=== PATIENT | female | born 1970 | race Caucasian/White ===

== ENCOUNTER 2018-11-04 20:46 | Emergency (ER) | payer OTHER ==
[2018-11-04 21:03] VITALS: BP 139/80
--- NOTE | 2018-11-04 21:28 | EDPHY ---
General Time Seen by Provider: 11/04/18 21:17 Narrative: CHIEF COMPLAINT: Accidentally Cut my wrist HISTORY OF PRESENT ILLNESS: Patient presents by private vehicle with complaints of accidental left wrist laceration. She states that she was opening a can of vegetables approximately 1 hr ago when the lid cut her left wrist. She has mild pain in the area. No pulsatile bleeding described. She has no numbness or tingling distally. No difficulty moving the wrist or fingers. Tetanus is felt to be up-to-date. No other associated complaints or modifying factors. TIME OF INJURY: Approximately 1 hr ago TETANUS STATUS: [place] to be up-to-date MEDICAL/SURGICAL/SOCIAL HISTORY: Uncomplicated. Lives independently with her spouse. 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 Brisk cap refill Neurological: A&O, sensory symmetric, strength symmetric Skin: Warm and dry, no rash. 4 cm laceration over the distal left wrist, volar. No pulsatile bleeding. No deep tissue structure injury. No foreign body. Neuro intact distal to the injury. Extremities: Tenderness of the left wrist laceration. Full range of motion of the upper extremities without deficit. Psych: Denies suicidal ideation, depression or homicidal ideation. DIFFERENTIAL DIAGNOSES: Including but not limited to laceration, laceration complication, laceration foreign body, laceration with deep tissue injury MDM: 9:15 p.m. Accidental left wrist laceration. This is a superficial wound with no deep tissue structure injury. She is neuro intact distally. She denies suicidal ideation. She has no injury elsewhere. Tetanus is felt to be up-to-date. I have anesthetize the wound. Proceed with irrigation closure. No indication for x-ray. 10:00 p.m. Superficial laceration to the left wrist that is accidental. She is neuro intact distal to the injury. The wound has been copiously irrigated and I have close the wound with excellent approximation. We discussed daily wound care and ED precautions. We discussed returning here for suture removal 7-10 days. Patient is comfortable this plan. She is discharged home with her spouse at bedside. PROCEDURE: Laceration repair Consent: Verbal Location: Left wrist, volar Length of repair: 4 cm Complexity: Complex Layer involvement: Superficial Anesthesia: Local. 0.25% Marcaine with epinephrine, 7 mL Irrigation: Extensive Debridement: None Procedure description: Following good anesthesia, the wound was copiously irrigated. Wound bed was explored with a sterile glove, and there is no foreign body noted. No injury to the retinacular deep tissue structure. Wound borders were approximated well with good hemostasis. Tolerated well without complication. Suture/Staple material: 4-0 Prolene, 6 simple interrupted sutures Wound care: Routine as discussed Suture/Staple removal: 7-10 Days SUPERVISION: This patient was independently evaluated without direct involvement of or examination by the attending physician. ED Precautions: Worsening pain. Erythema, edema, cyanosis, pallor, paresthesia or anesthesia. - History Smoking Status: Never smoked - Objective Vital Signs: Initial Vital Signs Temperature (C) 98.2 F 11/04/18 21:01 Heart Rate 107 H 11/04/18 21:01 Respiratory Rate 16 11/04/18 21:01 Blood Pressure 139/80 H 11/04/18 21:01 O2 Sat (%) 96 11/04/18 21:01 O2 Delivery Mode Room Air Allergies/Adverse Reactions: No Known Allergies Allergy (Unverified 11/04/18 21:01) Home Medications: Medication Instructions Recorded NK [No Known Home Meds] 11/04/18 Departure - Departure Disposition: Home, Routine, Self-Care Clinical Impression: Laceration of wrist without complication Qualifiers: Encounter type: initial encounter Laterality: left Qualified Code(s): S61.512A - Laceration without foreign body of left wrist, initial encounter Condition: Good Instructions: Care For Your Stitches (ED), Laceration (ED) Additional Instructions: 1. Thin layer of bacitracin once daily for the next 2 days 2. Keep the wound covered while showering for the next 3 days 3. Daily wound care as discussed 4. Return here for suture removal in 7-10 days 5. Return here for signs of infection as discussed including warmth, redness, fever, drainage from the site 6. return here for increasing pain surrounding the laceration 7. Do not submerge the wound in any water, hot tub, swimming pool until sutures removed Referrals: Renetta Thomson MD [Primary Care Provider] - As per Instructions Physician,Emergency DeptMD [Medical Doctor] - As per Instructions
== END 2018-11-04 22:09 | disposition home or self-care (01) ==
PROC: 0HQEXZZ Repair Left Lower Arm Skin, External Approach (ICD-10-PCS; principal; 2018-11-04)
DX: S61.512A Laceration without foreign body of left wrist, initial encounter (principal); W26.8XXA Contact with other sharp object(s), not elsewhere classified, initial encounter; Y93.G1 Activity, food preparation and clean up; Y92.9 Unspecified place or not applicable; Y99.9 Unspecified external cause status